=== PATIENT | female | born 1990 | race Caucasian/White ===

== ENCOUNTER 2019-02-06 16:57 | Emergency (ER) | payer MEDICAID ==
[~2019-02-06] VITALS: Ht 162.6 cm; Wt 59.9 kg
[2019-02-06 16:57] VITALS: BP_SYST 112
--- NOTE | 2019-02-06 16:57 | NUR ---
BROUGHT IN BY [facility], PLACED IN HALLWAY BED AND TRIAGED. REPORT GIVEN TO JOHN
--- NOTE | 2019-02-06 17:15 | NUR ---
Pt [id number] presents to ED via BLS from parking lot next to [place]. Pt had a syncopal episode and fell face first on a tire wheel. 6/10 Pain to L face. No discoloration, swelling, deformity noted. No other injuries/complaints per pt/noted. Will continue to monitor.
--- NOTE | 2019-02-06 17:23 | NUR ---
ER Dr. Pride at bedside examining patient.
[2019-02-06 18:01] VITALS: BP_SYST 117
== END 2019-02-06 17:45 | disposition home or self-care (01) ==
LOC: SED 16:57
DX: S00.83XA Contusion of other part of head, initial encounter (principal); R55 Syncope and collapse; W01.198A Fall on same level from slipping, tripping and stumbling with subsequent striking against other object, initial encounter; Y93.89 Activity, other specified; Y92.481 Parking lot as the place of occurrence of the external cause; Y99.8 Other external cause status
CPT/HCPCS: 81025; 93005; 99283